=== PATIENT | female | born 1940 | race Caucasian/White ===

== ENCOUNTER 2024-09-20 15:24 | Emergency (ER) | payer MEDICARE, MEDICAID, SELFPAY ==
[2024-09-20 15:29] VITALS: PULSE 70; RESP 18; O2SAT 100; BMI 40.6
[2024-09-20 15:43] VITALS: BP 170/81; PULSE 77; RESP 18; TEMP 36.6; O2SAT 97
--- NOTE | 2024-09-20 15:49 | XR_ITS ---
Examination: AP chest single view TECHNIQUE: AP portable semiupright chest single view Date and time: September 20, 2024 1419 hours INDICATIONS: Chest pain shortness of breath weakness beginning today FINDINGS: Normal heart size Calcification thoracic aorta. No pneumonia or pulmonary edema Prominent osteopenia, old fracture right humeral neck IMPRESSION: No pneumonia or pulmonary edema
--- NOTE | 2024-09-20 15:49 | EKG_ITS ---
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
--- NOTE | 2024-09-20 15:50 | XR_ITS ---
Examination: CT brain head without contrast. 2-D sagittal coronal reconstructions Date and time of exam:September 20, 2024 1606 hours INDICATIONS: Altered mental status today CTDI: vol (mGy):8.4 DLP: (mGycm):1503 Technique: Multiple CT axial sections of the brain have been obtained, 5 mm slice thickness. Contrast has not been administered. 2-D sagittal, coronal reconstructions have been obtained Low dose protocols were performed. One or more of the following dose reduction techniques were used; automated exposure control, adjustment of the mA and/or KV according to patient size, use of iterative reconstruction technique. Findings: No significant ventricular enlargement. Intra-axial or extra-axial hemorrhage density is not seen. No mass effect or midline shift Basal cisterns are not remarkable. Fourth ventricle is midline. Cranial vault intact. Impression: Negative for acute hemorrhage, mass effect or midline shift
--- NOTE | 2024-09-20 15:51 | EDNOTE_ITS ---
<Statement entered by Deborah Baptiste MD - 09/22/24 18:57> As co-signing physician, I was present and available for consult prn. I concur with the plan and care as documented by the midlevel provider. ED General RME/HPI General Chief complaint: Syncope / Near Syncope Stated complaint: SNYCOPE Time Seen by Provider: 09/20/24 15:49 Arrival date/time: 09/20/24 15:24 RME / HPI RME / HPI narrative: 84-year-old female patient was sent to us from care home for evaluation regarding on and off altered mental status according to EMS. This been ongoing for more than 1 day. With the EMS arrived patient was noted to be alert and oriented x 3 answer question appropriately. On my initial evaluation, patient was noted to be answering question appropriately alert and oriented x 3. Patient also complained of worsening generalized swelling, especially bilateral lower extremity. Patient was sent to us by facility MD to rule out congestive heart failure. Denies any other complaints. Patient is not on oxygen. Related Data Previous Rx's ?Medication ?Instructions ?Recorded furosemide 40 mg tablet (Lasix) 40 mg PO QDAY #7 tabs 09/20/24 potassium chloride 20 mEq 20 meq PO QDAY #7 tabs 09/20 tablet,extended release Allergies Allergy/AdvReac Type Severity Reaction Status Date / Time NKA Allergy Unknown Uncoded 11/02/02 14:55 RAW ONIONS Allergy Unknown Uncoded 11/02/02 14:55 Review of Systems Review of Systems Narrative Review of Systems: Review of system reviewed and within normal limits except mentioned in HPI ED Exam Narrative Physical exam: VITAL SIGNS: Reviewed. GENERAL APPEARANCE: Alert and interactive, follows commands, no acute distress, HEAD AND FACE: Non-traumatic. ENT: PERRL, pink conjunctivitis, eyelid no trauma, Mucous membrane moist. NECK: Supple, nontender, no nuchal rigidity. CHEST: No tenderness, no crepitus, no paradoxical movement, no retractions. LUNGS: Clear, well ventilated, symmetric, no rales, no wheezing, no ronchi, no stridor, good breath sounds bilaterally. HEART: Regular rate, regular rhythm, no murmur, no gallops. ABDOMEN: Soft, positive bowel sounds, nondistended, no guarding, nontender, no rebound, no masses, RECTAL: Deferred. GENITAL: Deferred. NEUROLOGICAL: Gross motor function intact sensory function intact, Appropriate for age. MUSCULOSKELETAL: low back nontender, full range of motion. EXTREMITIES: Bilateral lower extremity swelling +2, nontender, full range of motion. SKIN: Color pink, dry, no rash, no lacerations, no abrasions, no contusions. LYMPHATICS: Deferred. Course Quality Measures none Orders Category Date Time Status EKG (ED ONLY) *Do not use* NOW Care 09/20/24 15:[address] head/brain wo con Stat Exams 09/20/24 15:50 Completed EKG (ED Only) Stat Exams 09/20/24 15:49 Draft US venous doppler UE LT Stat Exams 09/20/24 18:25 Completed XR chest 1V Stat Exams 09/20/24 15:49 Completed B-Type Natriuretic Peptide Stat Lab 09/20/24 16:33 Completed CBC Stat Lab 09/20/24 16:33 Completed Comprehensive Metabolic Panel Stat Lab 09/20/24 16:33 Completed Partial Thromboplastin Time Stat Lab 09/20/24 16:33 Completed Prothrombin Time with INR Stat Lab 09/20/24 16:33 Completed Troponin I Stat Lab 09/20/24 16:33 Completed Urinalysis, C/S if Indicated Stat Lab 09/20/24 20:22 Completed Furosemide [Lasix] Med 09/20/24 18:25 Discontinued 40 mg PO X1 ONE Vital Signs Vital signs: Vital Signs Temperature 97.8 F 09/20/24 15:43 Pulse Rate 77 09/20/24 15:43 Respiratory Rate 18 09/20/24 15:43 Blood Pressure 170/81 H 09/20/24 15:43 Pulse Oximetry (%) 97 09/20/24 15:43 Oxygen Delivery Method Room Air 09/20/24 15:43 Discharge Plan Plan Patient Disposition: HOME (Self Care) Discharge Disposition comment: Stable Prescriptions/Referrals Prescriptions/Med Rec: New furosemide [Lasix] 40 mg tablet 40 mg PO QDAY Qty: 7 0RF potassium chloride 20 mEq tablet extended release 20 meq PO QDAY Qty: 7 0RF Referrals: Ricco Marquez MD [Primary Care Provider] - In 1 week Problem List Clinical Impression: Bilateral lower extremity edema, Arm swelling Patient/Caregiver Discharge Instructions Discharge Activity: activity as tolerated Education Materials: ED Leg Swelling in Both Legs Additional Instructions: Thank you for the opportunity for serving you today. You are stable for discharged . You are advised to: Follow-up with your PCP in 1 to 2 days Return to ED for worsening of symptoms Elevate legs as needed Please apply compression stocking as needed Take Lasix and potassium for 1 week as prescribed Print Language: American Stand Alone Forms: Giselle Award Info., Patient Portal Info Letter BALDEMAR/SANAZ Supervising Physician YAQUELIN Supervising Physician: MD Em[facility] Narrative MDM hospital course: 84-year-old female patient was sent to us from care home for evaluation regarding on and off altered mental status according to EMS. This been ongoing for more than 1 day. With the EMS arrived patient was noted to be alert and oriented x 3 answer question appropriately. On my initial evaluation, patient was noted to be answering question appropriately alert and oriented x 3. Patient also complained of worsening generalized swelling, especially bilateral lower extremity. Patient was sent to us by facility MD to rule out congestive heart failure. Denies any other complaints. Patient is not on oxygen. EKG showed sinus rhythm, ventricular rate of 67 bpm, no ST segment elevation depression noted. Patient's workup today all came back normal. CT scan of the head also came back unremarkable. Chest x-ray came back normal. Ultrasound of the left lower extremity showed no DVT. Results discussed with the patient. Medication Administration(s) Medication Administration History Discontinued Medications Furosemide (Furosemide 40 Mg Tablet) 40 mg PO X1 ONE Stop: 09/20/24 18:26 Last Admin: 09/20/24 18:55 Dose: 40 mg Documented By: DEREK
[2024-09-20 16:56] LABS: Basophils # (Auto) 0.1 Thou/mm3 (0.0-0.2); Basophils % (Auto) 1 % (0-2.5); Eosinophils # (Auto) 0.2 Thou/mm3 (0.0-0.5); Eosinophils % (Auto) 3 % (0-10); Hematocrit 30.8 % (36.0-46.0); Hemoglobin 11.1 g/dL (12.0-16.0); Immature Granulocytes % (Auto) 1 % (0-0); Immature Granulocytes Auto 0.04 Thou/mm3 (0.00-0.00); Lymphocytes # (Auto) 1.1 Thou/mm3 (1.0-4.8); Lymphocytes % (Auto) 15 % (10-50); Mean Corpuscular Hemoglobin 30.9 pg (25.0-35.0); Mean Corpuscular Volume 86 fL (80-100); Monocytes # (Auto) 0.7 Thou/mm3 (0.0-0.8); Monocytes % (Auto) 9 % (0-12); Neutrophils # (Auto) 5.2 Thou/mm3 (1.8-7.7); Neutrophils % (Auto) 72 % (37-80); Nucleated Red Blood Cell % 0 /100 WBC (0); Platelet Count 235 Thou/mm3 (140-440); RDW Standard Deviation 40.8 fL (36.4-46.3); Red Blood Count 3.59 Miln/mm3 (4.00-5.20); White Blood Count 7.2 Thou/mm3 (3.6-11.0)
[2024-09-20 17:00] LABS: B-Type Natriuretic Peptide 64 pg/mL (0-100)
[2024-09-20 17:02] LABS: Alanine Aminotransferase 15 U/L (10-49); Albumin, Serum 3.8 gm/dL (3.4-4.8); Albumin/Globulin Ratio 1.5 (1.2-2.2); Alkaline Phosphatase 64 U/L (46-116); Anion Gap 4 (7-16); Aspartate Amino Transferase 18 U/L (0-34); BUN/Creatinine Ratio 19 Ratio (12-20); Bilirubin,Total 0.4 mg/dL (0.3-1.2); Blood Urea Nitrogen 13 mg/dL (9-23); Calcium 8.8 mg/dL (8.3-10.6); Carbon Dioxide 33.3 mMol/L (20.0-31.0); Chloride 95 mMol/L (98-107); Creatinine (Component) 0.7 mg/dL (0.6-1.3); Estimated Creatinine Clearance 62.8 mL/min (>60); Globulin 2.5 gm/dL (2.3-3.5); Glucose 100 mg/dL (74-106); Osmolality,Calculated 264 (275-295); Potassium 4.2 mMol/L (3.4-5.1); Sodium 132 mMol/L (136-145); Total Protein 6.3 gm/dL (5.7-8.2); Troponin I < 0.020 ng/mL (0.0-0.045); eGFR > 60 See Note
[2024-09-20 17:20] LABS: Prothrombin Time 10.8 Seconds (9.0-12.2)
--- NOTE | 2024-09-20 18:25 | XR_ITS ---
Examination: Duplex scan of the upper extremity, unilateral left Date and time of exam: September 20, 2024, 1854 hours INDICATIONS: Onset left arm swelling today. Technique: Duplex scan of the extremity veins using B-mode/grayscale imaging and Doppler spectral analysis and color flow Attention is directed to internal echogenicity, compression and augmentation involving these veins, color flow assessment, spectral analysis Findings: Major deep venous structures in the extremity demonstrate normal course and caliber. There is no evidence of deep vein thrombosis. Normal color flow and spectral analysis Impression: Negative for DVT..
[2024-09-20 18:55] VITALS: BP 182/99; PULSE 73
[2024-09-20] MEDS: Furosemide 40 MG TABLET PO (18:55)
[2024-09-20 19:14] VITALS: BP 206/99; PULSE 74; RESP 20; O2SAT 97
[2024-09-20 20:28] LABS: Collection Type, Urine Clean Catch; RBC,Urine 0 /hpf (0-3); WBC,Urine 0 /hpf (0-5)
[2024-09-20 20:50] LABS: Bilirubin,Urine Negative (Negative); Blood,Urine Negative (Negative); Clarity,Urine Clear (Clear/Hazy); Color,Urine Colorless (Lt Yel-Yel); Culture Indicated,Urine Not Indicated; Glucose, Urine Negative (Negative); Ketones,Urine Negative (Negative); Leukocyte Esterase,Urine Negative (Negative); Nitrite,Urine Negative (Negative); Protein,Urine Negative (Neg - Trace); Specific Gravity,Urine 1.007 (1.001-1.035); Squamous Epithelial Cell,Urine 1 /hpf (0-5); Urobilinogen,Urine Negative mg/dL (0.0-1.0)
[2024-09-20 21:37] VITALS: BP 189/92; PULSE 86; RESP 16; O2SAT 94
--- NOTE | 2024-09-20 21:43 | PC.NURSE ---
REPORT GIVEN NURSING STAFF AT [facility], SPOKE WITH KARINE
== END 2024-09-20 23:12 | disposition home or self-care (01) ==
PROVIDERS: Nurse Practitioner Family; Emergency Provider Emergency Medicine; PCP Internal Medicine
DX: M79.89 Other specified soft tissue disorders (principal); R60.0 Localized edema; R41.82 Altered mental status, unspecified; R55 Syncope and collapse; R07.9 Chest pain, unspecified; R06.02 Shortness of breath; R53.1 Weakness
CPT/HCPCS: 36415; 70450; 71045; 80053; 81001; 83880; 84484; 85025; 85610; 85730; 93005; 93971; 99284; A9270